=== PATIENT | female | born 1985 | race Caucasian/White ===

== ENCOUNTER 2017-02-26 12:04 | Emergency (ER) | payer MEDICAID ==
[~2017-02-26] VITALS: Ht 182.9 cm; Wt 93.9 kg
[~2017-02-26 12:04] MED LIST: ALBU8.5H5 INH; ALPR0.25 PO; ARIP2TAB PO; BACL-19 PO; BUDE3CAP2 PO; BUDE9TAB PO; BUPR1FIL SL; BUTA1CAP57 PO; DIVA500T2 PO; DULO30CA2 PO; FLUT1DIS3 INH; GABA300C PO; GABA300C10 PO; GABA600T2 PO; GLIP10TA13 PO; GLIP5TAB PO; HYDR25CA PO; INSULIN; LEVO80CA PO; LISI-167 PO; LORA-446 PO; LOSA25TA5 PO; METF500T4 PO; METH4TAB2 PO; MIRT30TA3 PO; MONT10TA6 PO; MORP30TA3 PO; ONDA4TAB10 SL; ONDA4TAB13 SL; OXYC-302 PO; OXYC5CAP4 PO; PRAZ1CAP2 PO; PRAZ5CAP2 PO; PREG75CA PO; PROM12.55 PO; PROM25TA10 PO; SCOP1PAT TD; SITA1TBM7 PO; SULF1TAB3 PO; SUMA50TA3 PO; TOFA5TAB PO; TOPI100T24 PO; TOPI200T25 PO; TRAM-28 PO; TRAM50TA2 PO; TRAZ100T15 PO; VENL75CA PO; ZOLP10TA PO
[2017-02-26] MEDS ORDERED: SODIUM CHLORIDE 0.9% 1,000ML IVBOLUS ONE (12:30)
[2017-02-26] MEDS ORDERED: SODIUM CHLORIDE FLUSH 10ML SYR IVF ONE (12:30)
[2017-02-26] MEDS ORDERED: DIPHENHYDRAMINE 50 MG/ML, 1ML IVPush ONE (12:30)
[2017-02-26] MEDS ORDERED: METOCLOPRAMIDE 5 MG/ML, 2ML IVPush ONE (12:30)
[2017-02-26] MEDS ORDERED: KETOROLAC 30 MG/1 ML IVPush ONE (12:30)
[2017-02-26] MEDS ORDERED: METOCLOPRAMIDE 5 MG/ML, 2ML ONE (12:34)
[2017-02-26] MEDS ORDERED: DIPHENHYDRAMINE 50 MG/ML, 1ML ONE (12:34)
[2017-02-26] MEDS ORDERED: KETOROLAC 30 MG/1 ML ONE (12:34)
[2017-02-26] MEDS ORDERED: DEXAMETHASONE 4 MG/ML, 5ML ONE (14:08)
[2017-02-26] MEDS ORDERED: DEXAMETHASONE 4 MG/ML, 1ML IVPush ONE (14:30)
[2017-02-26 14:44] VITALS: BP 112/70
== END 2017-02-26 14:54 | disposition home or self-care (01) ==
LOC: ED 13:25
DX: G43.901 Migraine, unspecified, not intractable, with status migrainosus (principal); I10 Essential (primary) hypertension; E11.65 Type 2 diabetes mellitus with hyperglycemia; J45.909 Unspecified asthma, uncomplicated
CPT/HCPCS: 96361; 96374; 96375; 99284; J1100; J1200; J1885; J2765; J7030

== ENCOUNTER 2017-05-01 14:44 | Emergency (ER) | payer MEDICAID ==
[~2017-05-01] VITALS: Ht 182.9 cm; Wt 95.3 kg
[~2017-05-01 14:44] MED LIST changes: -ARIP2TAB PO; +ARIP2TAB2 PO; +OXYC5CAP2 PO; -OXYC5CAP4 PO; +SULF-169 PO; -SULF1TAB3 PO; -TRAM-28 PO; +TRAM-47 PO
[2017-05-01 14:49] VITALS: BP 121/83
[2017-05-01 15:52] LABS: HEMATOCRIT 40.5 % (34.6-47.8); HEMOGLOBIN 13.5 g/dL (11.7-16.4); WHITE BLOOD COUNT 6.8 x10^3/uL (3.4-10)
[2017-05-01 16:04] LABS: BLOOD UREA NITROGEN 17 mg/dL (7-18)
== END 2017-05-01 17:43 | disposition home or self-care (01) ==
LOC: ED 17:20
DX: N30.00 Acute cystitis without hematuria (principal); J45.909 Unspecified asthma, uncomplicated; E11.9 Type 2 diabetes mellitus without complications; I10 Essential (primary) hypertension; E66.01 Morbid (severe) obesity due to excess calories; Z68.28 Body mass index [BMI] 28.0-28.9, adult; G89.29 Other chronic pain; R51 Headache
CPT/HCPCS: 36415; 80048; 81001; 82040; 84702; 85025; 87077; 87086; 87186; 99284

== ENCOUNTER 2017-06-18 05:37 | Inpatient (IN) | payer MEDICAID ==
[2017-06-10 15:29] VITALS: BP 120/87
[~2017-06-18] VITALS: Ht 182.9 cm; Wt 101.8 kg
[~2017-06-18 05:37] MED LIST changes: +ARIP30TA4 PO; +CHOL5000 PO; +CYAN1TAB29 PO; +DIVA250T4 PO; +FERR-46 PO; +MIRT15TA PO; +ZALE10CA43 PO
[2017-06-18] MEDS ORDERED: LIDOCAINE 1%, 2ML ONE (05:59)
[2017-06-18 06:12] LABS: HCG UR LOT HCG7030192
[2017-06-18] MEDS ORDERED: BACITRACIN 50,000 UNIT ONE (06:14)
[2017-06-18] MEDS ORDERED: THROMBIN 5,000 UNIT VIAL TP ONE (06:14)
[2017-06-18 06:18] LABS: HCG UR OBC PASS
[2017-06-18] MEDS ORDERED: LACTATED RINGERS 1,000 ML IV SCH (06:22)
[2017-06-18] MEDS ORDERED: TRAM50TA2 PO (06:25)
[2017-06-18] MEDS ORDERED: LIDOCAINE 1%, 2ML SQ PRN (06:30)
[2017-06-18] MEDS ORDERED: NITR100C56 PO (06:34)
[2017-06-18] MEDS ORDERED: VANCOMYCIN 1,000 MG ONE (06:43)
[2017-06-18] MEDS ORDERED: KETAMINE 10 MG/ML, 20ML ONE (06:46)
[2017-06-18] MEDS ORDERED: FENTANYL PF 500 MCG/10ML ONE (06:46)
[2017-06-18] MEDS ORDERED: MIDAZOLAM 1 MG/ML, 2ML ONE (06:47)
[2017-06-18] MEDS ORDERED: HYDROmorphone 2 MG/ML, 1ML ONE (06:48)
[2017-06-18] MEDS ORDERED: LIDOCAINE GEL 2%, 5ML ONE (06:48)
[2017-06-18] MEDS ORDERED: CEFAZOLIN 1,000 MG ONE (06:50)
[2017-06-18] MEDS ORDERED: ONDANSETRON 2MG/ML, 2ML ONE (06:50)
[2017-06-18] MEDS ORDERED: PROPOFOL 10 MG/ML, 20ML ONE (06:50)
[2017-06-18] MEDS ORDERED: ROCURONIUM 10 MG/ML ONE (06:50)
[2017-06-18] MEDS ORDERED: SUCCINYLCHOLINE 20 MG/ML, 10ML ONE (06:50)
[2017-06-18] MEDS ORDERED: NEOSTIGMINE 1 MG/ML, 10ML ONE (06:50)
[2017-06-18] MEDS ORDERED: DEXAMETHASONE 4 MG/ML, 1ML ONE (06:50)
[2017-06-18] MEDS ORDERED: GLYCOPYRROLATE 0.2MG/1ML, 5ML ONE (06:50)
[2017-06-18] MEDS ORDERED: LIDOCAINE-MPF 2% ,5ML ONE ×2 (06:52→08:03)
[2017-06-18] MEDS ORDERED: PROPOFOL 50 ML ONE ×2 (06:52→08:02)
[2017-06-18] MEDS ORDERED: SCOPOLAMINE 1MG PATCH TD ONE (07:46)
[2017-06-18] MEDS ORDERED: EPHEDRINE 50 MG/ML, 1ML ONE (07:55)
[2017-06-18] MEDS ORDERED: LABETALOL 5MG/ML, 20ML IV PRN (08:00)
[2017-06-18] MEDS ORDERED: MEPERIDINE/PF 25MG/0.5ML IVPush PRN (08:00)
[2017-06-18] MEDS ORDERED: hydrALAzine 20 MG/ML, 1ML IV PRN (08:00)
[2017-06-18] MEDS ORDERED: METOCLOPRAMIDE 5 MG/ML, 2ML IV PRN (08:00)
[2017-06-18] MEDS ORDERED: HYDROmorphone 1 MG/ML, 1ML IV PRN (08:00)
[2017-06-18] MEDS ORDERED: PROMETHAZINE 25 MG/ML, 1ML IV PRN (08:00)
[2017-06-18] MEDS ORDERED: MIDAZOLAM 1 MG/ML, 2ML IV PRN (08:00)
[2017-06-18] MEDS ORDERED: ACETAMINOPHEN 325 MG TABLET PO PRN (08:00)
[2017-06-18] MEDS ORDERED: LORazepam 2 MG/ML, 1ML IVPush PRN (08:00)
[2017-06-18] MEDS ORDERED: ALBUTEROL/IPRATROPIUM 2.5MG/0.5MG, 3 ML NPPB PRN (08:00)
[2017-06-18] MEDS ORDERED: DIAZEPAM 5 MG/ML, 2ML IVPush PRN (08:00)
[2017-06-18] MEDS ORDERED: OXYcodone 5 MG/5 ML ORAL.SOL UDC PO PRN (08:00)
[2017-06-18] MEDS ORDERED: LORazepam 1MG TABLET PO PRN (08:30)
[2017-06-18] MEDS ORDERED: OXYcodone/APAP 5/325MG TABLET PO PRN (08:30)
[2017-06-18] MEDS ORDERED: PHARMACY MAY ADJ FOR RENAL FX MC PRN (08:30)
[2017-06-18] MEDS ORDERED: BISACODYL 10 MG SUPP PR PRN (08:30)
[2017-06-18] MEDS ORDERED: morphine SULFATE 10 MG/ML, 1ML IVPush PRN (08:30)
[2017-06-18] MEDS ORDERED: SENNA/DOCUSATE TABLET PO PRN (08:30)
[2017-06-18] MEDS ORDERED: METHOCARBAMOL 750 MG TABLET PO PRN (08:30)
[2017-06-18] MEDS ORDERED: VANCOMYCIN 1,500 MG in SODIUM CHLORIDE 0.9% 250 ML IVPB SCH (09:00)
[2017-06-18] MEDS ORDERED: CHOLECALCIFEROL 20000 UNIT PO SCH (09:00)
[2017-06-18] MEDS ORDERED: OXYcodone 5 MG/5 ML ORAL.SOL UDC ONE (09:16)
[2017-06-18] MEDS ORDERED: FENTANYL PF 100 MCG/2ML ONE (09:16)
[2017-06-18] MEDS: FENTANYL PF 100 MCG/2ML IV PRN ×2 (09:25→09:33)
[2017-06-18] MEDS: ENOXAPARIN 40 MG/0.4 ML SQ SCH (10:03)
[2017-06-18] MEDS: NITROFURANTOIN (MACROBID) 100 MG CAPSULE PO SCH ×2 (11:03→20:46)
[2017-06-18] MEDS: FERROUS SULFATE 325 MG TABLET PO SCH (11:03)
[2017-06-18] MEDS: DIVALPROEX 250 MG TABLET.DR PO SCH (11:03)
[2017-06-18] MEDS: TOPIRAMATE 100 MG TABLET PO SCH ×3 (11:04→20:46)
[2017-06-18] MEDS: HYDROcodone/APAP 5/325 TABLET PO PRN (11:29)
[2017-06-18] MEDS: [UNRECOGNIZED DRUG - OTHER] MC SCH ×2 (13:00→21:00)
[2017-06-18] MEDS: SODIUM CHLORIDE FLUSH 10ML SYR IVF SCH ×2 (13:00→20:47)
[2017-06-18] MEDS ORDERED: PHARMACOKINETIC CONSULTATION MC ONE (13:00)
[2017-06-18] MEDS ORDERED: PHARMACOKINETIC MONITORING MC PRN (13:00)
[2017-06-18] MEDS ORDERED: VANCOMYCIN PER PHARMACY MC PRN (13:00)
[2017-06-18 13:17] VITALS: BP 113/71
[2017-06-18] MEDS: DIPHENHYDRAMINE 50 MG/ML, 1ML IVPush PRN ×3 (14:03→23:50)
[2017-06-18] MEDS: D5%-0.9% NACL+KCL 20MEQ 1,000 ML IV SCH (16:40)
[2017-06-18] MEDS ORDERED: VANCOMYCIN 1,700 MG in SODIUM CHLORIDE 0.9% 500 ML IV SCH (17:00)
[2017-06-18] MEDS: HYDROmorphone 2MG TABLET PO PRN ×3 (17:29→23:46)
[2017-06-18 19:53] VITALS: BP 108/69
[2017-06-18] MEDS: ZOLPIDEM 10MG TABLET PO SCH (20:46)
[2017-06-18] MEDS: MIRTAZAPINE 15 MG TABLET PO SCH (20:46)
[2017-06-18] MEDS: ARIPIPRAZOLE 30 MG PO SCH (20:47)
[2017-06-18] MEDS: DIVALPROEX 500 MG TABLET.DR PO SCH (20:47)
[2017-06-18 23:32] VITALS: BP 103/72
[2017-06-19] MEDS: D5%-0.9% NACL+KCL 20MEQ 1,000 ML IV SCH ×3 (00:54→16:00)
[2017-06-19 03:18] VITALS: BP 104/71
[2017-06-19] MEDS: HYDROmorphone 2MG TABLET PO PRN ×5 (03:29→21:07)
[2017-06-19] MEDS: DIPHENHYDRAMINE 50 MG/ML, 1ML IVPush PRN ×3 (03:58→14:10)
[2017-06-19] MEDS: [UNRECOGNIZED DRUG - OTHER] MC SCH ×3 (05:00→20:52)
[2017-06-19] MEDS: ENOXAPARIN 40 MG/0.4 ML SQ SCH (06:18)
[2017-06-19 08:21] VITALS: BP 106/77
[2017-06-19] MEDS: FERROUS SULFATE 325 MG TABLET PO SCH (08:54)
[2017-06-19] MEDS: NITROFURANTOIN (MACROBID) 100 MG CAPSULE PO SCH ×2 (08:54→20:51)
[2017-06-19] MEDS: TOPIRAMATE 100 MG TABLET PO SCH ×3 (08:54→20:51)
[2017-06-19] MEDS: DIVALPROEX 250 MG TABLET.DR PO SCH (08:55)
[2017-06-19] MEDS: SODIUM CHLORIDE FLUSH 10ML SYR IVF SCH ×2 (08:55→20:51)
[2017-06-19] MEDS: CHOLECALCIFEROL 2000 UNIT PO SCH (08:55)
[2017-06-19] MEDS: PROMETHAZINE 25MG TABLET PO PRN ×2 (09:10→14:32)
[2017-06-19] MEDS: LINEZOLID PMX 600MG/300ML 300 ML IV SCH ×2 (10:59→20:51)
[2017-06-19 13:24] VITALS: BP 114/80
[2017-06-19] MEDS: DIVALPROEX 500 MG TABLET.DR PO SCH (20:51)
[2017-06-19] MEDS: ZOLPIDEM 10MG TABLET PO SCH (20:51)
[2017-06-19] MEDS: BETHANECHOL 10 MG TABLET PO SCH ×2 (20:51→21:00)
[2017-06-19] MEDS: ARIPIPRAZOLE 30 MG PO SCH (20:52)
[2017-06-19] MEDS: MIRTAZAPINE 15 MG TABLET PO SCH (21:07)
[2017-06-19 22:12] VITALS: BP 114/77
[2017-06-20] MEDS: D5%-0.9% NACL+KCL 20MEQ 1,000 ML IV SCH ×3 (00:56→16:00)
[2017-06-20] MEDS: HYDROmorphone 2MG TABLET PO PRN ×2 (01:02→05:07)
[2017-06-20] MEDS: [UNRECOGNIZED DRUG - OTHER] MC SCH ×3 (05:00→20:56)
[2017-06-20 05:30] VITALS: BP 109/78
[2017-06-20 07:44] VITALS: BP 109/77
[2017-06-20] MEDS: ENOXAPARIN 40 MG/0.4 ML SQ SCH (08:41)
[2017-06-20] MEDS: CYCLOBENZAPRINE 10 MG TABLET PO PRN ×2 (08:42→17:44)
[2017-06-20] MEDS: TOPIRAMATE 100 MG TABLET PO SCH ×3 (08:42→20:55)
[2017-06-20] MEDS: DIVALPROEX 250 MG TABLET.DR PO SCH (08:42)
[2017-06-20] MEDS: PROMETHAZINE 25MG TABLET PO PRN (08:42)
[2017-06-20] MEDS: SODIUM CHLORIDE FLUSH 10ML SYR IVF SCH ×2 (08:42→20:56)
[2017-06-20] MEDS: BETHANECHOL 10 MG TABLET PO SCH ×3 (08:42→20:55)
[2017-06-20] MEDS: DOXYCYCLINE 100MG TABLET PO SCH ×2 (08:42→20:55)
[2017-06-20] MEDS: FERROUS SULFATE 325 MG TABLET PO SCH (08:42)
[2017-06-20] MEDS: CHOLECALCIFEROL 2000 UNIT PO SCH (09:00)
[2017-06-20] MEDS: HYDROcodone/APAP 5/325 TABLET PO PRN (09:26)
[2017-06-20] MEDS: NITROFURANTOIN (MACROBID) 100 MG CAPSULE PO SCH ×2 (11:35→20:55)
[2017-06-20 13:20] VITALS: BP 116/80
[2017-06-20] MEDS: HYDROcodone/APAP 10/325 MG TABLET PO PRN ×2 (13:28→17:44)
[2017-06-20] MEDS: DIPHENHYDRAMINE 50 MG/ML, 1ML IVPush PRN ×2 (16:25→20:56)
[2017-06-20 19:58] VITALS: BP 113/79
[2017-06-20] MEDS: ZOLPIDEM 10MG TABLET PO SCH (20:55)
[2017-06-20] MEDS: DIVALPROEX 500 MG TABLET.DR PO SCH (20:56)
[2017-06-20] MEDS: MIRTAZAPINE 15 MG TABLET PO SCH (20:56)
[2017-06-20] MEDS: ARIPIPRAZOLE 30 MG PO SCH (20:57)
[2017-06-21 01:00] VITALS: BP 117/84
[2017-06-21] MEDS: HYDROcodone/APAP 10/325 MG TABLET PO PRN ×2 (01:04→07:07)
[2017-06-21] MEDS: DIPHENHYDRAMINE 50 MG/ML, 1ML IVPush PRN ×2 (01:08→08:29)
[2017-06-21] MEDS: [UNRECOGNIZED DRUG - OTHER] MC SCH ×2 (04:57→08:22)
[2017-06-21 07:01] VITALS: BP 110/78
[2017-06-21] MEDS: D5%-0.9% NACL+KCL 20MEQ 1,000 ML IV SCH ×2 (07:52)
[2017-06-21] MEDS: CHOLECALCIFEROL 2000 UNIT PO SCH (07:52)
[2017-06-21] MEDS: ENOXAPARIN 40 MG/0.4 ML SQ SCH (07:59)
[2017-06-21] MEDS: TOPIRAMATE 100 MG TABLET PO SCH (08:28)
[2017-06-21] MEDS: DIVALPROEX 500 MG TABLET.DR PO SCH (08:28)
[2017-06-21] MEDS: FERROUS SULFATE 325 MG TABLET PO SCH (08:28)
[2017-06-21] MEDS: NITROFURANTOIN (MACROBID) 100 MG CAPSULE PO SCH (08:28)
[2017-06-21] MEDS: DOXYCYCLINE 100MG TABLET PO SCH (08:28)
[2017-06-21] MEDS: BETHANECHOL 10 MG TABLET PO SCH (08:28)
[2017-06-21] MEDS: SODIUM CHLORIDE FLUSH 10ML SYR IVF SCH (08:29)
[2017-06-21] MEDS: DIVALPROEX 250 MG TABLET.DR PO SCH (08:30)
[2017-06-21] MEDS ORDERED: BETH10TA12 PO (10:22)
[2017-06-21] MEDS ORDERED: DOXY100C2 PO (10:23)
[2017-06-21] MEDS ORDERED: CYCL-259 PO (10:24)
[2017-06-21] MEDS ORDERED: HYDR-3240 PO (10:25)
[2017-06-21] MEDS ORDERED: FLU VACC QS2017-18 (36MOS+) UP/PF 0.5 ML IM-VACC ONE (11:00)
[2017-06-21 11:03] VITALS: BP 122/84
== END 2017-06-21 11:35 | disposition home or self-care (01) | DRG 460 ==
LOC: ORIP 05:37 → 4NOR 09:56
PROVIDERS: ADMIT Neurological Surgery; ATTEND Neurological Surgery
PROC: 0SG30A0 Fusion of Lumbosacral Joint with Interbody Fusion Device, Anterior Approach, Anterior Column, Open Approach (ICD-10-PCS; 2017-06-18)
PROC: 4A11X4G Monitoring of Peripheral Nervous Electrical Activity, Intraoperative, External Approach (ICD-10-PCS; 2017-06-18)
PROC: 0SB40ZZ Excision of Lumbosacral Disc, Open Approach (ICD-10-PCS; principal; 2017-06-18 07:00)
DX: M48.07 Spinal stenosis, lumbosacral region (principal); M41.80 Other forms of scoliosis, site unspecified; M48.57XA Collapsed vertebra, not elsewhere classified, lumbosacral region, initial encounter for fracture; G89.29 Other chronic pain; M51.17 Intervertebral disc disorders with radiculopathy, lumbosacral region; R33.9 Retention of urine, unspecified; Z86.14 Personal history of Methicillin resistant Staphylococcus aureus infection; Z88.1 Allergy status to other antibiotic agents; I10 Essential (primary) hypertension; E11.9 Type 2 diabetes mellitus without complications
CPT/HCPCS: 36415; 72100; 72131; 74000; 81025; 82565; C1713; C1776; J0690; J1100; J1170; J1650; J2020; J2250; J2405; J2704; J2710; J3010; J3370; J3490; Q0169; C1762; J0330; J1200; J2270; J3480; J7120

== ENCOUNTER 2017-11-02 15:21 | Emergency (ER) | payer MEDICAID ==
[~2017-11-02] VITALS: Ht 182.9 cm; Wt 93.7 kg
[~2017-11-02 15:21] MED LIST changes: +BETH10TA12 PO; +CYCL-259 PO; +DOXY100C2 PO; +HYDR-3240 PO; +NITR100C56 PO; -SCOP1PAT TD; +SCOP1PAT11 TD
[2017-11-02 16:40] LABS: BASOPHILS # (AUTO) 0.02 x10^3/uL (0-0.1); BASOPHILS % (AUTO) 0 % (0-1); EOSINOPHILS # (AUTO) 0.06 x10^3/uL (0-0.4); EOSINOPHILS % (AUTO) 1 % (1-7); LYMPHOCYTES # (AUTO) 1.38 x10^3/uL (1-3.4); LYMPHOCYTES % (AUTO) 25 % (22-44); MD NO; MEAN CORPUSCULAR HEMOGLOBIN 31.8 pg (27.0-34.8); MEAN CORPUSCULAR VOLUME 93.4 fL (80-100); MEAN PLATELET VOLUME 8.2 fL (7.4-10.4); MONOCYTES # (AUTO) 0.32 x10^3/uL (0.2-0.8); MONOCYTES % (AUTO) 6 % (2-9); NEUTROPHILS # (AUTO) 3.85 x10^3/uL (1.8-6.8); NEUTROPHILS % (AUTO) 68 % (42-75); PLATELET COUNT 249 x10^3/uL (130-400); RED BLOOD COUNT 4.55 x10^6/uL (3.82-5.3)
[2017-11-02 16:44] LABS: ALANINE AMINOTRANSFERASE 23 U/L (12-78); ALBUMIN 3.5 g/dL (3.4-5.0); ANION GAP 8 mmol/L (5-15); CALCIUM 8.5 mg/dL (8.5-10.1); CHLORIDE 110 mmol/L (98-107); CREATININE 0.95 mg/dL (0.55-1.02)
[2017-11-02 16:51] LABS: ALKALINE PHOSPHATASE 64 U/L (45-117); BILIRUBIN,TOTAL 0.2 mg/dL (0.2-1.0); TOTAL PROTEIN 7.5 g/dL (6.4-8.2)
[2017-11-02 17:15] LABS: CULTURE INDICATED? YES; MICROSCOPIC INDICATED
[2017-11-02] MEDS ORDERED: CIPROFLOXACIN 500 MG TABLET PO ONE (17:30)
[2017-11-02] MEDS ORDERED: CIPROFLOXACIN 500 MG TABLET ONE (18:07)
[2017-11-02 18:20] VITALS: BP 118/85
== END 2017-11-02 18:26 | disposition home or self-care (01) ==
LOC: ED 18:00
DX: N30.90 Cystitis, unspecified without hematuria (principal); I10 Essential (primary) hypertension; G43.909 Migraine, unspecified, not intractable, without status migrainosus; E11.65 Type 2 diabetes mellitus with hyperglycemia; E86.1 Hypovolemia; J45.909 Unspecified asthma, uncomplicated
CPT/HCPCS: 36415; 80053; 81001; 84703; 85025; 87077; 87086; 87186; 99284

== ENCOUNTER 2019-06-15 00:05 | Inpatient (IN) | payer MEDICARE, MEDICAID ==
[~2019-06-15] VITALS: Ht 182.9 cm; Wt 117.0 kg
[~2019-06-15 00:05] MED LIST changes: -GABA600T2 PO; +GABA600T7 PO; +LOSA25TA25 PO; -LOSA25TA5 PO; +METF500T17 PO; -METF500T4 PO; +MORP-30 PO; -MORP30TA3 PO; -PROM12.55 PO; +PROM12.57 PO; +TRAZ-137 PO; -TRAZ100T15 PO
[2019-06-15] MEDS ORDERED: PIPERACILLIN/TAZO/PMX 3.375GM 50 ML ONE (00:44)
[2019-06-15] MEDS ORDERED: CYCLOBENZAPRINE 10 MG TABLET PO PRN (01:00)
[2019-06-15] MEDS ORDERED: ACETAMINOPHEN 325 MG TABLET PO PRN (01:00)
[2019-06-15] MEDS ORDERED: PROMETHAZINE 25MG TABLET PO PRN (01:00)
[2019-06-15] MEDS ORDERED: BISACODYL 10 MG SUPP PR PRN (01:00)
[2019-06-15] MEDS ORDERED: LORazepam 1MG TABLET PO PRN (01:00)
[2019-06-15] MEDS ORDERED: ZALEPLON 10 MG PO PRN (01:00)
[2019-06-15] MEDS ORDERED: POLYETHYLENE GLYCOL 17 GM PACKET PO PRN (01:00)
[2019-06-15] MEDS ORDERED: PRAZ5CAP2 PO (01:35)
[2019-06-15] MEDS ORDERED: PROC10TA78 PO (01:35)
[2019-06-15] MEDS ORDERED: ZOLM5TAB34 PO (01:45)
[2019-06-15] MEDS ORDERED: OMEP-110 PO (01:45)
[2019-06-15] MEDS ORDERED: DULO60CA7 PO (01:45)
[2019-06-15] MEDS ORDERED: EREN70AU2 IM (01:45)
[2019-06-15] MEDS: PIPERACILLIN/TAZO/PMX 3.375GM 50 ML IV SCH ×4 (02:02→21:55)
[2019-06-15] MEDS: morphine SULFATE 10 MG/ML, 1ML IVPush PRN ×5 (02:03→21:01)
[2019-06-15] MEDS: NS + 20MEQ KCL 1,000 ML IV SCH ×2 (02:10→12:47)
[2019-06-15 05:35] LABS: BASOPHILS % (AUTO) 0 % (0-1); EOSINOPHILS # (AUTO) 0.07 x10^3/uL (0-0.4); EOSINOPHILS % (AUTO) 1 % (1-7); LYMPHOCYTES # (AUTO) 1.85 x10^3/uL (1-3.4); LYMPHOCYTES % (AUTO) 30 % (22-44); MD NO; MEAN CORPUSCULAR HEMOGLOBIN 29.9 pg (27.0-34.8); MEAN CORPUSCULAR HGB CONC 33.3 g/dL (32.4-35.8); MEAN CORPUSCULAR VOLUME 89.9 fL (80-100); MEAN PLATELET VOLUME 7.4 fL (7.4-10.4); MONOCYTES # (AUTO) 0.58 x10^3/uL (0.2-0.8); MONOCYTES % (AUTO) 9 % (2-9); NEUTROPHILS # (AUTO) 3.67 x10^3/uL (1.8-6.8); NEUTROPHILS % (AUTO) 59 % (42-75); PLATELET COUNT 284 x10^3/uL (130-400); RED BLOOD COUNT 4.62 x10^6/uL (3.82-5.3); RED CELL DISTRIBUTION WIDTH 13.9 % (9.6-15.2)
[2019-06-15 05:45] LABS: ALANINE AMINOTRANSFERASE 88 U/L (12-78); ALBUMIN 3.5 g/dL (3.4-5.0); ANION GAP 6 mmol/L (5-15); CALCIUM 8.2 mg/dL (8.5-10.1); CHLORIDE 110 mmol/L (98-107); CREATININE 0.93 mg/dL (0.55-1.02)
[2019-06-15 05:47] LABS: ALKALINE PHOSPHATASE 132 U/L (45-117); BILIRUBIN,TOTAL 0.4 mg/dL (0.2-1.0); TOTAL PROTEIN 6.9 g/dL (6.4-8.2)
[2019-06-15 07:24] VITALS: BP 126/85
[2019-06-15] MEDS: FERROUS SULFATE 325 MG TABLET PO SCH (08:14)
[2019-06-15] MEDS: BETHANECHOL 10 MG TABLET PO SCH ×3 (08:14→21:00)
[2019-06-15] MEDS: CHOLECALCIFEROL 5,000u TAB PO SCH (08:14)
[2019-06-15] MEDS: SENNA/DOCUSATE TABLET PO SCH (08:15)
[2019-06-15] MEDS: DIVALPROEX 250 MG TABLET.DR PO SCH (08:16)
[2019-06-15] MEDS ORDERED: VITAMIN B12 FOLIC ACID PO SCH (09:00)
[2019-06-15] MEDS ORDERED: TOPIRAMATE 100 MG TABLET PO SCH ×2 (09:00→16:00)
[2019-06-15] MEDS ORDERED: ZOLMITRIPTAN 2.5 MG TABLET PO PRN (11:00)
[2019-06-15] MEDS ORDERED: ERENUMAB AOOE 140 MG SC SCH (11:00)
[2019-06-15] MEDS: MICROGESTIN PO SCH (12:00)
[2019-06-15 12:40] VITALS: BP 121/86
[2019-06-15 13:47] LABS: HEMOGLOBIN A1C 6.2 % (4.2-6.3)
[2019-06-15] MEDS ORDERED: HYOS0.1268 PO (16:14)
[2019-06-15] MEDS: HYOSCYAMINE 0.125 MG TABLET PO SCH (17:38)
[2019-06-15 19:38] VITALS: BP 113/64
[2019-06-15] MEDS ORDERED: ZOLPIDEM 10MG TABLET PO SCH (21:00)
[2019-06-15] MEDS ORDERED: MIRTAZAPINE 15 MG TABLET PO SCH (21:00)
[2019-06-15] MEDS ORDERED: ARIPIPRAZOLE 10 MG TABLET PO SCH (21:00)
[2019-06-15] MEDS ORDERED: DIVALPROEX 500 MG TABLET.DR PO SCH (21:00)
[2019-06-15] MEDS: DULOXETINE 30 MG CAPSULE.DR PO SCH (21:56)
[2019-06-15] MEDS: PRAZOSIN 5 MG CAPSULE PO SCH (21:56)
[2019-06-15] MEDS: TOPIRAMATE 100 MG TABLET PO SCH (21:56)
[2019-06-16] MEDS: morphine SULFATE 10 MG/ML, 1ML IVPush PRN ×2 (00:07→03:45)
[2019-06-16] MEDS: NS + 20MEQ KCL 1,000 ML IV SCH (00:10)
[2019-06-16 01:21] VITALS: BP 123/79
[2019-06-16] MEDS: PIPERACILLIN/TAZO/PMX 3.375GM 50 ML IV SCH ×3 (03:45→19:56)
[2019-06-16 06:04] LABS: BASOPHILS # (AUTO) 0.03 x10^3/uL (0-0.1); BASOPHILS % (AUTO) 1 % (0-1); EOSINOPHILS # (AUTO) 0.12 x10^3/uL (0-0.4); EOSINOPHILS % (AUTO) 3 % (1-7); LYMPHOCYTES # (AUTO) 1.57 x10^3/uL (1-3.4); LYMPHOCYTES % (AUTO) 35 % (22-44); MD NO; MEAN CORPUSCULAR HEMOGLOBIN 30.6 pg (27.0-34.8); MEAN CORPUSCULAR HGB CONC 33.4 g/dL (32.4-35.8); MEAN CORPUSCULAR VOLUME 91.6 fL (80-100); MEAN PLATELET VOLUME 7.9 fL (7.4-10.4); MONOCYTES # (AUTO) 0.28 x10^3/uL (0.2-0.8); MONOCYTES % (AUTO) 6 % (2-9); NEUTROPHILS # (AUTO) 2.53 x10^3/uL (1.8-6.8); NEUTROPHILS % (AUTO) 56 % (42-75); PLATELET COUNT 236 x10^3/uL (130-400); RED BLOOD COUNT 3.92 x10^6/uL (3.82-5.3); RED CELL DISTRIBUTION WIDTH 14.4 % (9.6-15.2)
[2019-06-16 06:15] LABS: ANION GAP 5 mmol/L (5-15); CALCIUM 7.7 mg/dL (8.5-10.1); CHLORIDE 115 mmol/L (98-107)
[2019-06-16 06:19] LABS: ALANINE AMINOTRANSFERASE 55 U/L (12-78); ALKALINE PHOSPHATASE 112 U/L (45-117); BILIRUBIN,TOTAL 0.4 mg/dL (0.2-1.0); CREATININE 0.71 mg/dL (0.55-1.02); TOTAL PROTEIN 5.8 g/dL (6.4-8.2)
[2019-06-16] MEDS ORDERED: POTASSIUM PHOSPHATE 44 MEQ in SODIUM CHLORIDE 0.9% 500 ML IV ONE (07:30)
[2019-06-16] MEDS: BETHANECHOL 10 MG TABLET PO SCH (08:52)
[2019-06-16] MEDS: FERROUS SULFATE 325 MG TABLET PO SCH (08:53)
[2019-06-16] MEDS: HYOSCYAMINE 0.125 MG TABLET PO SCH ×3 (08:53→16:02)
[2019-06-16] MEDS: TOPIRAMATE 100 MG TABLET PO SCH ×2 (08:53→19:54)
[2019-06-16] MEDS: DIVALPROEX 250 MG TABLET.DR PO SCH (08:53)
[2019-06-16] MEDS: CHOLECALCIFEROL 5,000u TAB PO SCH (08:54)
[2019-06-16] MEDS: MICROGESTIN PO SCH (08:55)
[2019-06-16] MEDS: SENNA/DOCUSATE TABLET PO SCH (08:55)
[2019-06-16 10:32] VITALS: BP 125/80
[2019-06-16 13:27] VITALS: BP 125/87
[2019-06-16] MEDS ORDERED: FERR325T18 PO (13:37)
[2019-06-16] MEDS ORDERED: DULO60CA56 PO (13:37)
[2019-06-16] MEDS ORDERED: METF500T12 PO (13:37)
[2019-06-16] MEDS: DOXYCYCLINE 100MG CAP PO SCH ×2 (13:53→19:55)
[2019-06-16] MEDS: MUPIROCIN OINT 2%, 22GM TP SCH ×3 (13:53→19:56)
[2019-06-16] MEDS ORDERED: MORPHINE SULFATE 4 MG/ML, 1ML IVPush ONE (16:30)
[2019-06-16] MEDS: PRAZOSIN 5 MG CAPSULE PO SCH (19:55)
[2019-06-16 19:56] VITALS: BP 115/72
[2019-06-16] MEDS: DULOXETINE 30 MG CAPSULE.DR PO SCH (19:57)
[2019-06-16] MEDS ORDERED: ZOLPIDEM 10MG TABLET PO PRN (21:00)
[2019-06-16] MEDS: HYDROcodone/APAP 5/325 TABLET PO PRN (21:43)
[2019-06-17] MEDS: PIPERACILLIN/TAZO/PMX 3.375GM 50 ML IV SCH ×2 (02:20→08:13)
[2019-06-17] MEDS: HYDROcodone/APAP 5/325 TABLET PO PRN ×2 (04:49→13:48)
[2019-06-17 04:57] VITALS: BP 116/83
[2019-06-17] MEDS: CHOLECALCIFEROL 5,000u TAB PO SCH (08:13)
[2019-06-17] MEDS: TOPIRAMATE 100 MG TABLET PO SCH (08:13)
[2019-06-17] MEDS: HYOSCYAMINE 0.125 MG TABLET PO SCH ×2 (08:13→11:00)
[2019-06-17] MEDS: FERROUS SULFATE 325 MG TABLET PO SCH (08:13)
[2019-06-17] MEDS: DOXYCYCLINE 100MG CAP PO SCH (08:13)
[2019-06-17] MEDS: MUPIROCIN OINT 2%, 22GM TP SCH (08:14)
[2019-06-17] MEDS: SENNA/DOCUSATE TABLET PO SCH (08:14)
[2019-06-17] MEDS: MICROGESTIN PO SCH (08:17)
[2019-06-17 10:54] VITALS: BP 121/84
[2019-06-17] MEDS ORDERED: MUPI22OI2 TP (11:21)
[2019-06-17] MEDS ORDERED: DOXY100C2 PO (11:21)
[2019-06-17 13:52] VITALS: BP 152/95
== END 2019-06-17 16:49 | disposition home or self-care (01) | DRG 92 ==
LOC: ED 00:32 → 3N 01:17
PROVIDERS: ADMIT Internal Medicine; ATTEND Internal Medicine
DX: T85.738A Infection and inflammatory reaction due to other nervous system device, implant or graft, initial encounter (principal); L03.312 Cellulitis of back [any part except buttock and flank]; K50.90 Crohn's disease, unspecified, without complications; M54.9 Dorsalgia, unspecified; E11.9 Type 2 diabetes mellitus without complications; E66.01 Morbid (severe) obesity due to excess calories; E83.39 Other disorders of phosphorus metabolism; E87.6 Hypokalemia; G89.29 Other chronic pain; K22.2 Esophageal obstruction; Y83.8 Other surgical procedures as the cause of abnormal reaction of the patient, or of later complication, without mention of misadventure at the time of the procedure; I10 Essential (primary) hypertension; J45.909 Unspecified asthma, uncomplicated; Z68.35 Body mass index [BMI] 35.0-35.9, adult; Z91.5 Personal history of self-harm; Z96.82 Presence of neurostimulator; Z98.84 Bariatric surgery status; Z90.49 Acquired absence of other specified parts of digestive tract; Z88.1 Allergy status to other antibiotic agents; Z88.8 Allergy status to other drugs, medicaments and biological substances; Y92.098 Other place in other non-institutional residence as the place of occurrence of the external cause; Z79.84 Long term (current) use of oral hypoglycemic drugs
CPT/HCPCS: 36415; 80053; 83036; 83735; 84100; 85025; 99285; G0378; J2543; J3480; J2270; J7040

== ENCOUNTER 2020-07-27 05:09 | Day surgery (SDC) | payer MEDICARE, MEDICAID ==
[~2020-07-27] VITALS: Ht 182.9 cm; Wt 116.0 kg
[~2020-07-27 05:09] MED LIST changes: +CELE200C PO; +CYAN-27 INJ; +DULO60CA56 PO; +DULO60CA7 PO; +EREN70AU2 IM; +FERR325T18 PO; +HYOS0.1268 PO; +METF-754 PO; +METH750T87 PO; +MIRT-37 PO; -MIRT15TA PO; +MUPI22OI2 TP; +OMEP-110 PO; +PROC10TA78 PO; +SUCR1ORA5 PO; -TRAZ-137 PO; +TRAZ-175 PO; +ZOLM5TAB34 PO
[2020-07-27] MEDS ORDERED: INTERCEED 3 X 4 INCH DRESSING ONE (05:56)
[2020-07-27 06:08] VITALS: BP 133/94
[2020-07-27] MEDS ORDERED: LIDOCAINE-MPF 1%, 2ML INFIL ONE (06:30)
[2020-07-27] MEDS ORDERED: CHLORHEXIDINE 15 ML UDC MM ONE (06:30)
[2020-07-27] MEDS ORDERED: LACTATED RINGERS 1,000 ML IV SCH (06:30)
[2020-07-27] MEDS ORDERED: FENTANYL PF 100 MCG/2ML ONE ×3 (06:37→09:05)
[2020-07-27] MEDS ORDERED: MIDAZOLAM 1 MG/ML, 2ML ONE (06:38)
[2020-07-27] MEDS ORDERED: PROPOFOL 10 MG/ML, 20ML ONE (07:00)
[2020-07-27] MEDS ORDERED: NEOSTIGMINE 1 MG/ML, 10ML ONE (07:00)
[2020-07-27] MEDS ORDERED: DEXAMETHASONE 4 MG/ML, 1ML ONE (07:00)
[2020-07-27] MEDS ORDERED: ROCURONIUM 10 MG/ML,10ML ONE (07:00)
[2020-07-27] MEDS ORDERED: GLYCOPYRROLATE 0.2MG/1ML, 5ML ONE (07:00)
[2020-07-27] MEDS ORDERED: SUCCINYLCHOLINE 20 MG/ML, 10ML ONE (07:00)
[2020-07-27] MEDS ORDERED: ONDANSETRON 2MG/ML, 2ML ONE (07:00)
[2020-07-27] MEDS ORDERED: OXYcodone 5 MG/5 ML ORAL.SOL UDC PO PRN (09:00)
[2020-07-27] MEDS ORDERED: KETOROLAC 30 MG/1 ML IVPush PRN (09:00)
[2020-07-27] MEDS ORDERED: HYDROcodone/APAP 7.5-325MG/15ML UDC PO PRN (09:00)
[2020-07-27] MEDS ORDERED: MEPERIDINE/PF 25MG/0.5ML IVPush PRN (09:00)
[2020-07-27] MEDS ORDERED: OXYcodone 5 MG/5 ML ORAL.SOL UDC ONE (09:05)
[2020-07-27] MEDS ORDERED: MEPERIDINE/PF 25MG/ML,1ML ONE (09:05)
[2020-07-27] MEDS ORDERED: ACETAMINOPHEN 650 MG/20.3 ML UDC ONE (09:05)
[2020-07-27] MEDS ORDERED: KETOROLAC 30 MG/1 ML ONE (09:25)
[2020-07-27] MEDS ORDERED: ACETAMINOPHEN 650 MG/20.3 ML UDC PO PRN (09:30)
[2020-07-27] MEDS: FENTANYL PF 100 MCG/2ML IV PRN ×3 (09:33→09:59)
[2020-07-27] MEDS ORDERED: PROMETHAZINE 25 MG/ML, 1ML ONE (09:54)
[2020-07-27] MEDS ORDERED: HYDROmorphone 1 MG/ML, 1ML INJ ONE (09:54)
[2020-07-27] MEDS: PROMETHAZINE 25 MG/ML, 1ML IVPush PRN ×2 (09:54→10:20)
[2020-07-27] MEDS: HYDROmorphone 1 MG/ML, 1ML INJ IVPush PRN ×2 (10:07→10:23)
[2020-07-27] MEDS ORDERED: METHOCARBAMOL 1,000 MG in DEXTROSE 5% 100 ML IV ONE (11:00)
== END 2020-07-27 14:05 | disposition home or self-care (01) ==
LOC: OUT 05:09
PROVIDERS: ATTEND Obstetrics & Gynecology
DX: N83.201 Unspecified ovarian cyst, right side (principal); N73.6 Female pelvic peritoneal adhesions (postinfective); K66.8 Other specified disorders of peritoneum; G43.909 Migraine, unspecified, not intractable, without status migrainosus; Z20.828 Contact with and (suspected) exposure to other viral communicable diseases; Z79.899 Other long term (current) drug therapy; Z88.8 Allergy status to other drugs, medicaments and biological substances; Z90.49 Acquired absence of other specified parts of digestive tract; Z98.84 Bariatric surgery status; Z98.890 Other specified postprocedural states
CPT/HCPCS: 49322; 81025; 88305; J0330; J1100; J1170; J1885; J2175; J2250; J2405; J2550; J2704; J2710; J3010; J7120; U0003

== ENCOUNTER 2021-02-07 11:55 | Emergency (ER) | payer MEDICARE, MEDICAID ==
[~2021-02-07] VITALS: Ht 182.9 cm; Wt 113.7 kg
[~2021-02-07 11:55] MED LIST changes: -CYCL-259 PO; +CYCL10TA2 PO; +HYDR-2214 PO; -HYDR-3240 PO; -OXYC-302 PO; +OXYC1TAB14 PO
[2021-02-07 12:13] VITALS: BP 153/103
[2021-02-07] MEDS ORDERED: KETOROLAC 30 MG/1 ML ONE (12:44)
[2021-02-07] MEDS ORDERED: METHOCARBAMOL 750 MG TABLET ONE (12:44)
--- NOTE | 2021-02-07 12:50 | NUR ---
BUTCHER MEAT PER OCT. PT GOING TO XRAY.
[2021-02-07] MEDS ORDERED: KETOROLAC 30 MG/1 ML IM ONE (13:00)
[2021-02-07] MEDS ORDERED: METHOCARBAMOL 750 MG TABLET PO ONE (13:00)
--- NOTE | 2021-02-07 13:15 | NUR ---
ALL RESULTS ARE BACK AT THIS TIME. CHART UP FOR RECHECK.
== END 2021-02-07 13:42 | disposition home or self-care (01) ==
LOC: ED 13:05
DX: S39.012A Strain of muscle, fascia and tendon of lower back, initial encounter (principal); J45.909 Unspecified asthma, uncomplicated; G43.909 Migraine, unspecified, not intractable, without status migrainosus; K50.90 Crohn's disease, unspecified, without complications; E66.01 Morbid (severe) obesity due to excess calories; Z68.34 Body mass index [BMI] 34.0-34.9, adult; X58.XXXA Exposure to other specified factors, initial encounter; Y93.89 Activity, other specified; Y92.89 Other specified places as the place of occurrence of the external cause; Y99.8 Other external cause status
CPT/HCPCS: 72110; 96372; 99283; J1885

== ENCOUNTER 2021-04-08 12:33 | Emergency (ER) | payer MEDICARE, MEDICAID ==
[~2021-04-08] VITALS: Ht 185.4 cm; Wt 112.2 kg
[~2021-04-08 12:33] MED LIST changes: -DOXY100C2 PO; +DOXY100C5 PO; +OXYC1TAB12 PO; -OXYC1TAB14 PO; -SCOP1PAT11 TD; +SCOP1PAT13 TD
[2021-04-08 14:05] LABS: BASOPHILS % (AUTO) 1 % (0-1); EOSINOPHILS % (AUTO) 3 % (1-7); LYMPHOCYTES % (AUTO) 24 % (22-44); MEAN CORPUSCULAR HEMOGLOBIN 30.9 pg (27.0-34.8); MEAN CORPUSCULAR HGB CONC 34.1 g/dL (32.4-35.8); MEAN PLATELET VOLUME 7.7 fL (7.4-10.4); MONOCYTES % (AUTO) 5 % (2-9); NEUTROPHILS % (AUTO) 66 % (42-75); PLATELET COUNT 291 x10^3/uL (130-400); RED BLOOD COUNT 4.58 x10^6/uL (3.82-5.3)
[2021-04-08 14:21] LABS: ANION GAP 4 mmol/L (5-15); CHLORIDE 104 mmol/L (98-107)
[2021-04-08 14:22] LABS: ALANINE AMINOTRANSFERASE 29 U/L (12-78); ALBUMIN 3.8 g/dL (3.4-5.0); ALKALINE PHOSPHATASE 139 U/L (45-117); BILIRUBIN,TOTAL 0.3 mg/dL (0.2-1.0); CALCIUM 8.8 mg/dL (8.5-10.1); CREATININE 0.82 mg/dL (0.55-1.02); TOTAL PROTEIN 7.2 g/dL (6.4-8.2)
[2021-04-08] MEDS ORDERED: SODIUM CHLORIDE FLUSH 10ML SYR IVF ONE (19:30)
[2021-04-08] MEDS ORDERED: MAALOX/HYOSCYAMINE/LIDOCAINE 45 ML BTL PO ONE (19:30)
[2021-04-08] MEDS ORDERED: SODIUM CHLORIDE 0.9% 1,000ML IVBOLUS ONE (19:30)
[2021-04-08] MEDS ORDERED: MORPHINE SULFATE 4 MG/ML, 1ML IVPush PRN (19:30)
[2021-04-08] MEDS ORDERED: METOCLOPRAMIDE 5 MG/ML, 2ML IVPush ONE (19:30)
[2021-04-08] MEDS ORDERED: METOCLOPRAMIDE 5 MG/ML, 2ML ONE (20:24)
[2021-04-08] MEDS ORDERED: MORPHINE SULFATE 4 MG/ML, 1ML ONE (20:24)
[2021-04-08] MEDS ORDERED: OMNIPAQUE 350 MG/ML, 150 ML BOTTLE ONE (20:50)
--- NOTE | 2021-04-08 20:52 | NUR ---
REPORT FROM RINA YI
[2021-04-08 20:57] VITALS: BP 130/98
[2021-04-08 21:15] LABS: MICROSCOPIC AUTO
== END 2021-04-08 22:34 | disposition home or self-care (01) ==
LOC: ED 19:57
DX: A08.4 Viral intestinal infection, unspecified (principal); I10 Essential (primary) hypertension; E11.9 Type 2 diabetes mellitus without complications; E66.01 Morbid (severe) obesity due to excess calories; Z90.49 Acquired absence of other specified parts of digestive tract; Z68.32 Body mass index [BMI] 32.0-32.9, adult
CPT/HCPCS: 36415; 74022; 74177; 80053; 81001; 83690; 84703; 85025; 87077; 87086; 87186; 96374; 96375; 99285; J2270; J2765; J7030; Q9967

== ENCOUNTER → 2021-05-07 | Outpatient (CLI) | payer MEDICARE, MEDICAID | END | disposition home or self-care (01) | LOC: STAR 12:12 | PROVIDERS: ATTEND Obstetrics & Gynecology | DX: Z01.812 Encounter for preprocedural laboratory examination (principal); Z20.822 Contact with and (suspected) exposure to COVID-19; R10.2 Pelvic and perineal pain; N83.202 Unspecified ovarian cyst, left side ==